=== PATIENT | female | born 1965 ===

== ENCOUNTER 2017-01-30 12:19 | Emergency (ER) | payer SELFPAY ==
[2017-01-30 12:20] VITALS: BMI 22.6
[2017-01-30 12:34] VITALS: RESP 18; TEMP 98.7; O2SAT 98
--- NOTE | 2017-01-30 12:44 | ED PDOC ---
Arrival/HPI - General Chief Complaint: Lower Extremity Problem/Injury Time Seen by Provider: 01/30/17 12:44 Historian: Patient - History of Present Illness Narrative History of Present Illness (Text): 01/30/17 12:44 This 51 yo female presents to this ED c/o right knee pain x 1 day. Patient stated she slipped and fell down stairs at home. Patient noted right knee is swollen with skin abrasion on anterior knee and right arm. Patient also c/o right lower back pain extending to her buttocks. Patient denies loc, sob, cp, abdominal pain, GI/ incontinence, saddle anesthesias, urinary retention, hematuria, urinary symptoms, dizziness, syncope, weakness, paresthesias, ankle pain, or neck pain. Time/Duration: Other (last night) Quality: Aching Context: Home Past Medical History - Provider Review Nursing Documentation Reviewed: Yes - Tetanus Immunization Tetanus Immunization: Unknown - Reproductive Menopause: Yes - Gastrointestinal Hx Gastritis: Yes - Psychiatric Hx Substance Use: No - Surgical History Other/Comment: Breast Sx Family/Social History - Physician Review Nursing Documentation Reviewed: Yes Family/Social History: Other (noncontributory) Smoking Status: Never Smoked Hx Alcohol Use: Yes Frequency of alcohol use: Socially Hx Substance Use: No Allergies/Home Meds Allergies/Adverse Reactions: Allergies No Known Allergies Allergy (Verified 01/30/17 12:34) Review of Systems - Review of Systems Constitutional: Normal. absent: Fatigue, Weight Change, Fevers Eyes: Normal ENT: Normal Respiratory: Normal Cardiovascular: Normal Gastrointestinal: Normal Genitourinary Female: Normal Musculoskeletal: Arthralgias, Back Pain, Joint Swelling Skin: Other (abrasions) Neurological: Normal Endocrine: Normal Hemo/Lymphatic: Normal Psychiatric: Normal Physical Exam Vital Signs Temp Pulse Resp BP Pulse Ox 01/30/17 13:55 69 18 122/71 98 01/30/17 12:29 98.7 F 74 18 124/78 98 Temperature: Afebrile Blood Pressure: Normal Pulse: Regular Respiratory Rate: Normal Appearance: Positive for: Well-Appearing, Non-Toxic, Comfortable Pain Distress: None Mental Status: Positive for: Alert and Oriented X 3 - Systems Exam Head: Present: Atraumatic, Normocephalic, Other (no raccoon sign. no manriquez sign) Pupils: Present: PERRL, Other (no hyphema) Extroacular Muscles: Present: EOMI. No: Entrapment Conjunctiva: Present: Normal Ears: Present: Normal, NORMAL TM, Normal Canal, Other (no hemotympanum). No: Erythema, TM Bulging, Fluid, TM Perf Mouth: Present: Moist Mucous Membranes Pharnyx: Present: Normal. No: ERYTHEMA, EXUDATE, TONSILS ENLARGED Neck: Present: Normal Range of Motion Respiratory/Chest: Present: Clear to Auscultation, Good Air Exchange. No: Respiratory Distress, Accessory Muscle Use, Wheezes, Retracting, Rhonchi, Tender to Palpation Cardiovascular: Present: Regular Rate and Rhythm, Normal S1, S2. No: Murmurs Abdomen: No: Tenderness Back: Present: Normal Inspection, Paraspinal Tenderness (mild right paravertebral tenderness. No vertebral point tenderness. no vertebral step off ). No: CVA Tenderness, Midline Tenderness, Pain with Leg Raise Upper Extremity: Present: Normal ROM, NORMAL PULSES, Capillary Refill < 2s Lower Extremity: Present: NORMAL PULSES, Normal ROM, Capillary Refill < 2 s. No : CALF TENDERNESS Neurological: Present: GCS=15, CN II-XII Intact, Speech Normal, Motor Func Grossly Intact, Normal Sensory Function Skin: Present: Warm, Dry, Normal Color, Abrasion. No: Rashes Psychiatric: Present: Alert, Oriented x 3, Normal Insight, Normal Concentration Medical Decision Making ED Course and Treatment: 01/30/17 13:56 Re-evaluation. Patient feels better. Discussed results and plan with patient who expresses understanding. All questions answered and there is agreement with the plan to discharge home with instructions. Patient stable for discharge. Return if symptoms persist or worsen. Re-evaluation Time: 13:56 Reassessment Condition: Re-examined, Improved - RAD Interpretation Narrative RAD Interpretations (Text): 01/30/17 13:56 LS x-rays: No Fx or sublux. Hip X-rays: no Fx or sublux. Knee x-rays: STS. No Fx or dislocation Radiology Orders: 01/30/17 12:51 LS SPINE WITH OBL > 18 YRS OLD [RAD] Stat 01/30/17 12:52 Hip Right [HIP MIN 2V W/ PELVIS RT] [RAD] Stat 01/30/17 12:53 KNEE W PATELLA RIGHT 3 VIEW [RAD] Stat - Medication Orders Current Medication Orders: Discontinued Medications Ondansetron HCl (Zofran Odt) 4 mg PO STAT STA Stop: 01/30/17 12:54 Last Admin: 01/30/17 13:04 Dose: 4 mg Oxycodone/Acetaminophen (Percocet 5/325 Mg Tab) 1 tab PO STAT STA Stop: 01/30/17 12:54 Last Admin: 01/30/17 13:05 Dose: 1 tab MAR Pain Assessment Document 01/30/17 13:05 GMD (Rec: 01/30/17 13:05 GMD [id number]) Pain Reassessment Is this a pain reassessment? No Sleep Is patient sleeping during reassessment? No Presence of Pain Presence of Pain Yes Tetanus/Reduced Diphtheria/Acell Pertussis (Boostrix Vaccine Inj) 0.5 ml IM .ONCE ONE Stop: 01/30/17 12:55 Last Admin: 01/30/17 13:05 Dose: 0.5 ml Immunization Registry Document 01/30/17 13:05 GMD (Rec: 01/30/17 13:05 GMD [id number]) Immunization Registry Consent Date 01/30/17 Disposition/Present on Arrival - Present on Arrival Any Indicators Present on Arrival: No History of DVT/PE: No History of Uncontrolled Diabetes: No Urinary Catheter: No History of Decub. Ulcer: No History Surgical Site Infection Following: None - Disposition Have Diagnosis and Disposition been Completed?: Yes Diagnosis: Knee pain, acute Disposition: HOME/ ROUTINE Disposition Time: 13:57 Patient Plan: Discharge Patient Problems: Current Active Problems Problem Status Onset Knee pain, acute Acute Condition: GOOD Discharge Instructions (ExitCare): Knee Pain (ED) Additional Instructions: Call private doctor for follow up visit in 2-3 days. Keep knee elevated, ice, rest, mariza bandage, crutches for at least 5 days. Remove mariza bandage at bedtime. Return to emergency if symptoms worsen Prescriptions: Famotidine [Pepcid] 40 mg PO DAILY #10 tablet Ibuprofen [Motrin] 600 mg PO Q8 PRN #20 tab PRN Reason: Pain, Severe (8-10) Referrals: Ted Salazar MD [Primary Care Provider] - Follow up with primary Forms: [employer] (Uzbek)
[2017-01-30] MEDS ORDERED: Oxycodone/Acetaminophen 5/325 mg Tab PO STA (12:53)
[2017-01-30] MEDS ORDERED: TDAP Vaccine 0.5 mL Syr IM ONE (12:54)
[2017-01-30 13:55] VITALS: BP 122/71; PULSE 69
--- NOTE | 2017-01-30 15:33 | RAD ---
PROCEDURE: Radiographs of the Lumbar Spine. HISTORY: pain COMPARISON: No prior. FINDINGS: BONES: Normal alignment. No listhesis. No fracture. DISC SPACES: Unremarkable. OTHER FINDINGS: None. IMPRESSION: Unremarkable radiographs of the lumbar spine.
--- NOTE | 2017-01-30 15:34 | RAD ---
PROCEDURE: Right Hip and pelvis Radiographs. HISTORY: pain COMPARISON: None. FINDINGS: BONES: Normal. No fracture. JOINTS: Normal. SOFT TISSUES: Normal. OTHER FINDINGS: None. IMPRESSION: Normal radiographs of right hip.
--- NOTE | 2017-01-30 15:35 | RAD ---
PROCEDURE: Right Knee Radiographs. HISTORY: pain COMPARISON: None. FINDINGS: BONES: Normal. No fracture. JOINTS: Normal. No osteoarthritis. JOINT EFFUSION: None. OTHER FINDINGS: None. IMPRESSION: Normal radiographs of the right knee.
== END 2017-01-30 14:16 | disposition home or self-care (01) ==
LOC: ED 12:19
DX: M25.561 Pain in right knee (principal); Z23 Encounter for immunization

== ENCOUNTER 2017-03-08 11:26 | Emergency (ER) | payer OTHER ==
[2017-03-08 12:12] VITALS: BMI 23.3
[2017-03-08 12:15] VITALS: BP 129/87; PULSE 70; RESP 18; TEMP 98.2; O2SAT 100
--- NOTE | 2017-03-08 12:54 | ED PDOC ---
Arrival/HPI - General Chief Complaint: Female Genitourinary Time Seen by Provider: 03/08/17 12:50 Historian: Patient, Community Development Director - History of Present Illness Narrative History of Present Illness (Text): 03/08/17 12:20 51 year old female presents to the Emergency department, status post fall yesterday, complaining of pain to left hip. Patient reports she was walking when someone bumped into her and she fell backwards onto her buttocks. Patient reports she is postmenopausal and her LNMP was 1 year and 4 months ago; however , since the fall she has been bleeding more than she would during a regular menstrual period. Patient also complains of lower abdominal pain, lightheadedness, and weakness. Patient denies any fever, chills, chest pain, shortness of breath, nausea, vomiting, diarrhea, back pain, neck pain, or any other complaints. Time/Duration: 24 hours Symptom Onset: Sudden Symptom Course: Unchanged Activities at Onset: Light Context: Walking Past Medical History - Provider Review Nursing Documentation Reviewed: Yes - Infectious Disease Hx of Infectious Diseases: None - Tetanus Immunization Tetanus Immunization: Unknown - Gastrointestinal Hx Gastritis: Yes - Psychiatric Hx Substance Use: No - Surgical History Other/Comment: Breast Sx - Anesthesia Hx Anesthesia: Yes Hx Anesthesia Reactions: No Hx Malignant Hyperthermia: No Family/Social History - Physician Review Nursing Documentation Reviewed: Yes Family/Social History: Unknown Family HX Smoking Status: Never Smoked Hx Alcohol Use: Yes Hx Substance Use: No Allergies/Home Meds Allergies/Adverse Reactions: Allergies No Known Allergies Allergy (Verified 01/30/17 12:34) Home Medications: Home Meds Medication Instructions Recorded Confirmed No Known Home Med 03/08/17 03/08/17 Review of Systems - Physician Review All systems were reviewed & negative as marked: Yes - Review of Systems Constitutional: absent: Fevers Respiratory: absent: SOB Cardiovascular: absent: Chest Pain Gastrointestinal: Abdominal Pain. absent: Diarrhea, Nausea, Vomiting Genitourinary Female: Vaginal Bleeding Musculoskeletal: Other (left hip pain) Neurological: Dizziness. absent: Headache Physical Exam Vital Signs Reviewed: Yes Vital Signs Temp Pulse Resp BP Pulse Ox 03/08/17 12:15 98.2 F 70 18 129/87 100 Temperature: Afebrile Blood Pressure: Normal Pulse: Regular Respiratory Rate: Normal Appearance: Positive for: Well-Appearing, Non-Toxic, Comfortable Pain Distress: None Mental Status: Positive for: Alert and Oriented X 3 - Systems Exam Head: Present: Atraumatic, Normocephalic Pupils: Present: PERRL Extroacular Muscles: Present: EOMI Conjunctiva: Present: Normal Mouth: Present: Moist Mucous Membranes Neck: Present: Normal Range of Motion Respiratory/Chest: Present: Clear to Auscultation, Good Air Exchange. No: Respiratory Distress, Accessory Muscle Use Cardiovascular: Present: Regular Rate and Rhythm, Normal S1, S2. No: Murmurs Abdomen: Present: Tenderness (subjective mild bilateral lower abdominal pain). No: Peritoneal Signs, Rebound, Guarding Genitourinary/Pelvic Exam: Present: Other (5-10 cc of dark stool in vault, no active bleeding, uterus is normal in contour). No: Adenexal Tenderness, Adenexal Mass, Cervical Motion Tendernes Back: Present: Normal Inspection Upper Extremity: Present: Normal Inspection. No: Cyanosis, Edema Lower Extremity: Present: Normal Inspection. No: Edema Neurological: Present: GCS=15, CN II-XII Intact, Speech Normal Skin: Present: Warm, Dry, Normal Color. No: Rashes Psychiatric: Present: Alert, Oriented x 3, Normal Insight, Normal Concentration Medical Decision Making ED Course and Treatment: 03/08/17 12:25 Impression: 51 year old female presents to the Emergency department following a fall complaining of left hip pain. Plan: -- Urinalysis -- US on pelvis -- Labs -- Pelvic exam -- Reassess and disposition Progress Notes: 03/08/17 14:43 Spoke with the patient through recreation adviser concerning importance of follow up with printing machinist regarding postmenopausal bleeding to rule out uterine malignancy. 03/08/17 15:00 Labs reviewed. Normal H&H. Negative urine test. Urinalysis, other than blood, is negative. - Lab Interpretations Lab Results: 03/08/17 13:09 Lab Results 03/08/17 13:09: Blood Type O POSITIVE, Antibody Screen Negative, BBK History Checked No verified bt 03/08/17 13:09: Beta HCG, Quant < 2.39 03/08/17 13:09: PT 10.6, INR 0.96, APTT 29.1 03/08/17 13:09: WBC 8.4, RBC 4.47, Hgb 13.7, Hct 41.3, MCV 92.4, MCH 30.6, MCHC 33.2, RDW 13.8, Plt Count 367, MPV 8.9, Gran % 62.8, Lymph % (Auto) 29.3, [place] % (Auto) 5.7, Eos % (Auto) 1.8, Baso % (Auto) 0.4, Gran # 5.29, Lymph # 2.5, [place] # 0.5, Eos # 0.2, Baso # 0.03 03/08/17 13:00: Urine Color Yellow, Urine Appearance Sl cloudy, Urine pH 6.5, Ur Specific [place] 1.020, Urine Protein Negative, Urine Glucose (UA) Negative, Urine Ketones Negative, Urine Blood Large H, Urine Nitrate Negative, Urine Bilirubin Negative, Urine Urobilinogen 0.2, Ur Leukocyte Esterase Negative, Urine RBC Tntc, Urine WBC Negative, Ur Epithelial Cells 0 - 2, Urine Bacteria Few - RAD Interpretation Narrative RAD Interpretations (Text): Uterine fibroids are noted but cannot r/o endometrial neoplasm 03/08/17 22:28 Radiology Orders: 03/08/17 13:08 TRANSVAGINAL [US] Stat Furniture Assembly Supervisor: Radiologist - Scribe Statement The provider has reviewed the documentation as recorded by the Scribe Thai Resendez All medical record entries made by the Scribe were at my direction and personally dictated by me. I have reviewed the chart and agree that the record accurately reflects my personal performance of the history, physical exam, medical decision making, and the department course for this patient. I have also personally directed, reviewed, and agree with the discharge instructions and disposition. Disposition/Present on Arrival - Present on Arrival Any Indicators Present on Arrival: No History of DVT/PE: No History of Uncontrolled Diabetes: No Urinary Catheter: No History of Decub. Ulcer: No History Surgical Site Infection Following: None - Disposition Have Diagnosis and Disposition been Completed?: Yes Diagnosis: Post-menopausal bleeding Disposition: HOME/ ROUTINE Disposition Time: 22:29 Patient Plan: Discharge Condition: GOOD Discharge Instructions (ExitCare): Dysfunctional Uterine Bleeding (ED), Uterine Fibroids (ED) Print Language: MALDIVIAN Additional Instructions: Be sure to f/u with gynecology for further work up with Dr Diggs Referrals: Ted Salazar MD [Primary Care Provider] - Follow up with primary Dario Diggs MD [Staff Provider] - Follow up with primary Forms: [employer] (Bulgarian)
[2017-03-08 13:14] LABS: PH,URINE 6.5 (4.7-8.0); URINE BILIRUBIN NEGATIVE (NEGATIVE); URINE BLOOD LARGE (NEGATIVE); URINE GLUCOSE (UA) NEGATIVE (NEGATIVE); URINE LEUKOCYTE ESTERASE NEGATIVE Leu/uL (NEGATIVE); URINE NITRATE NEGATIVE (NEGATIVE); URINE PROTEIN NEGATIVE mg/dL (<30 mg/dL); URINE UROBILINOGEN 0.2 E.U./dL (<1 E.U./dL)
[2017-03-08 13:15] LABS: URINE APPEARANCE SL CLOUDY (CLEAR); URINE COLOR YELLOW (YELLOW)
[2017-03-08 13:22] LABS: URINE BACTERIA FEW (NEG); URINE EPITHELIAL CELLS 0 - 2 /hpf (0-5); URINE RBC TNTC /hpf (0-2); URINE WBC NEGATIVE /hpf (0-6)
[2017-03-08 13:24] LABS: BASO # 0.03 K/mm3 (0.0-2.0); BASO % 0.4 % (0.0-3.0); EOS # 0.2 (0.0-0.7); EOS % 1.8 % (1.5-5.0); GRAN # 5.29 (1.4-6.5); GRAN % 62.8 % (50.0-68.0); HEMOGLOBIN 13.7 g/dL (12.0-16.0); LYMPH # 2.5 (1.2-3.4); LYMPH % 29.3 % (22.0-35.0); MEAN CELL VOLUME 92.4 fl (80.0-105.0); MEAN CORPUSCULAR HEMOGLOBIN 30.6 pg (25.0-35.0); MEAN CORPUSCULAR HGB CONC 33.2 g/dl (31.0-37.0); MEAN PLATELET VOLUME 8.9 fl (7.0-11.0); MONO # 0.5 (0.1-0.6); MONO % 5.7 % (1.0-6.0); RBC 4.47 10^6/uL (3.5-6.1); RED CELL DISTRIBUTION WIDTH 13.8 % (11.5-14.5); WHITE BLOOD COUNT 8.4 10^3/ul (4.5-11.0)
[2017-03-08 13:36] LABS: INR 0.96 (0.93-1.08); PARTIAL THROMBOPLASTIN TIME 29.1 Seconds (25.1-36.5); PROTHROMBIN TIME 10.6 SECONDS (9.4-12.5)
--- NOTE | 2017-03-08 13:54 | US ---
HISTORY: Post menopausal vag bleeding COMPARISON: None available. TECHNIQUE: Transvaginal pelvic ultrasound was performed. FINDINGS: UTERUS: Measures 9.0 x 4.6 x 5.4 cm. Normal in size and appearance. There is a 3.6 x 2.9 x 3.8 cm subserosal posterior wall fibroid in the midbody of the uterus. There is a 1.7 x 1.6 x 1.7 cm intramural fundal fibroid. ENDOMETRIUM: Measures 13 mm in diameter. Thickened for postmenopausal status. CERVIX: No cervical abnormality identified. RIGHT OVARY: Measures 2.9 x 0.9 x 2.8 cm. No solid mass. Normal flow. LEFT OVARY: Measures 5.1 x 2.5 x 2.6 cm. No solid mass. Normal flow. There is a 2.9 x 2.0 x 2.9 cm simple cyst. FREE FLUID: No significant free fluid noted. OTHER FINDINGS: None. IMPRESSION: 1. Fibroid uterus, the larger subserosal posterior wall fibroid measures 3.6 x 2.9 x 3.8 cm. 2. 2.9 cm simple cyst in the left ovary. 3. The central endometrial echo complex is thickened for postmenopausal status. Findings could be related to endometrial hyperplasia however carcinoma cannot be excluded. If clinically indicated, correlation with endometrial sampling may be performed.
== END 2017-03-08 15:20 | disposition home or self-care (01) ==
LOC: ED 11:26
DX: N95.0 Postmenopausal bleeding (principal)